=== PATIENT | female | born 1960 | race Caucasian/White ===

== ENCOUNTER → 2016-08-24 | Outpatient (CLI) | payer BC ==
--- NOTE | 2016-08-24 15:32 | DI ---
PA /LATERAL CHEST X-RAY, 08/24/2016 2:51 PM : Clinical History: Rheumatoid arthritis. Previous Exam: None at this facility. There is no acute soft tissue or bony abnormality. Heart size is normal. Lungs are clear. Mediastinal structures are normal. There are no rheumatoid nodules or other nodules noted. Reading: Normal chest x-ray.
== END ==
LOC: MOB RAD 15:03
PROVIDERS: ATTEND Nurse Practitioner Family
DX: M06.89 Other specified rheumatoid arthritis, multiple sites (principal)
CPT/HCPCS: 71020